=== PATIENT | male | born 1985 | race Two or more races ===

== ENCOUNTER 2017-08-24 20:56 | Emergency (ER) | payer SELFPAY ==
[2017-08-24 21:02] VITALS: BP 130/85; PULSE 120; TEMP 99.1; BMI 28.5
[2017-08-24] MEDS ORDERED: KETOROLAC TROMETHAMINE 60 MG/2 ML VIAL IM ONE (21:48)
[2017-08-24] MEDS ORDERED: KETOROLAC TROMETHAMINE 60 MG/2 ML VIAL ONE (21:56)
--- NOTE | 2017-08-24 22:05 | PDOC ---
History of Present Illness - General Chief Complaint: Pain Stated Complaint: PAIN Time Seen by Provider: 08/24/17 21:15 - History of Present Illness Initial Comments: 08/24/17 21:58 CHIEF COMPLAINT: ankle pain HISTORY OF PRESENT ILLNESS: 31 yo M with no hx of chronic b/l ankle pain presents to [facility] with recurrent ankle pain b/l x 4 days. 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 He reports working more recently prior to the onset of this ankle pain. He states he can bear weight on both foot, but there is pain to both ankles when he walks and when he touches the area of swelling. He denies any trauma or recent injury to b/l ankles. PAST MEDICAL HISTORY: Denies past medical history FAMILY HISTORY: Denies SOCIAL HISTORY: Denies tobacco, alcohol, illicit drug use. SURGICAL HISTORY: Denies ALLERGIES: No known drug allergies REVIEW OF SYSTEMS as per HPI PHYSICAL EXAM General Appearance: Well-appearing, appropriately dressed. No apparent distress , no intoxication. HEENT: EOMI, PERRLA. No conjunctival pallor. No photophobia, scleral icterus. Respiratory/Chest: Lungs CTAB. Cardiovascular: RRR. S1, S2. Musculoskeletal/Extremities: Mild swelling to b/l lateral malleoli, tenderness on palpation over peroneal tendon b/l. B/l heels with slight varus posturing. FROM of all extremities, normal capillary refill. Pelvis Stable. No CVA tenderness. Integumentary: Appropriate color, dry, warm. 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 Fully oriented, alert. Appropriate mood/affect. Motor strength 5/5. No appreciable EOM palsy, facial droop or sensory deficit. Past History - Past Medical History Allergies/Adverse Reactions: Allergies Allergy/AdvReac Type Severity Reaction Status Date / Time No Known Allergies Allergy Verified 08/24/17 21:02 Home Medications: Ambulatory Orders Diclofenac Sodium [Voltaren -] 75 mg PO BID #14 tablet. 08/24/17 - Suicide/Smoking/Psychosocial Hx Smoking History: Never smoked Hx Alcohol Use: No Drug/Substance Use Hx: No *Physical Exam - Vital Signs Last Vital Signs Temp Pulse Resp BP Pulse Ox 99.1 F 120 H 18 130/85 99 08/24/17 20:57 08/24/17 20:57 08/24/17 20:57 08/24/17 20:57 08/24/17 20:57 ED Treatment Course - RADIOLOGY Radiology Studies Ordered: Category Date Time Status ANKLE-LEFT [RAD] Stat Radiology 08/24/17 21:46 Ordered ANKLE-RIGHT [RAD] Stat Radiology 08/24/17 21:46 Ordered Medical Decision Making - Medical Decision Making 08/24/17 22:05 31 yo M with no hx of chronic b/l ankle pain presents to [facility] with recurrent ankle pain b/l x 4 days. -Toradol IM -x-ray b/l ankles X-rays negative for fracture or dislocation. Clinical presentation consistent with peroneal tendinosis. NSAIDS, ortho f/u for PT. Advised patient to take medication as prescribed and follow up with ortho this week for PT. Advised patient of signs and symptoms for return to ED. Patient verbalized understanding and agrees to plan. *DC/Admit/Observation/Transfer Diagnosis at time of Disposition: Peroneal tendinosis Qualifiers: Laterality: unspecified laterality Qualified Code(s): M76.70 - Peroneal tendinitis, unspecified leg - Discharge Dispostion Disposition: HOME Condition at time of disposition: Stable Admit: No - Prescriptions Prescriptions: Diclofenac Sodium [Voltaren -] 75 mg PO BID #14 tablet.dr - Referrals Referrals: Beto Reilly MD [Staff Physician] - Dinesh Boykin MD [Staff Physician] - - Patient Instructions Printed Discharge Instructions: Peroneal Tendinopathy, How To Perform RICE ( Rest, Ice, Compress, Elevate) Additional Instructions: You MUST rest your ankles to avoid further injury. Follow up with orthopedics for further evaluation THIS WEEK; physical therapy can greatly improve your healing time. If you develop any new or worsening symptoms, please return to the ER. Print Language: MALAY - Post Discharge Activity Forms/Work/School Notes: Back to Work
== END 2017-08-24 22:22 | disposition home or self-care (01) ==
LOC: JERFT 20:56 → JER 20:56 → JERFT 22:22
DX: M76.71 Peroneal tendinitis, right leg (principal); M76.72 Peroneal tendinitis, left leg; X50.1XXA Overexertion from prolonged static or awkward postures, initial encounter; Y93.G1 Activity, food preparation and clean up; Y92.511 Restaurant or cafe as the place of occurrence of the external cause; Y99.0 Civilian activity done for income or pay
CPT/HCPCS: 73610-TC-LT; 73610-TC-RT; 99281-25